=== PATIENT | female | born 1990 | race Caucasian/White ===

== ENCOUNTER 2018-12-22 13:27 | Outpatient (CLI) | payer BC ==
[~2018-12-22] VITALS: Ht 154.9 cm; Wt 66.8 kg
[2018-12-22] MEDS ORDERED: SINEQUAN 1010 MG/CAP PO (14:09)
[2018-12-22] MEDS ORDERED: SINGULAIR 110 MG/TAB PO (14:10)
[2018-12-22] MEDS ORDERED: CYCLOSPORINE100 MG PO (14:10)
[2018-12-22] MEDS ORDERED: ZANTAC 150MG T150 MG PO (14:11)
[2018-12-22] MEDS ORDERED: ZYRTEC 10MG10 MG PO (14:11)
[2018-12-22] MEDS ORDERED: XULANE1 TDM TD (14:12)
[2018-12-22] MEDS ORDERED: VENTOLIN0.09 MG IH (14:12)
[2018-12-22 14:13] VITALS: BP 118/70; PULSE 96; TEMP 98.3
[2018-12-22] MEDS ORDERED: EPIPEN 2-PAK1 MG/ML IM (14:13)
[2018-12-22] MEDS ORDERED: ANIMAL SHAPES +1 CTB (14:13)
[2018-12-22 16:05] VITALS: BP 109/67; PULSE 88; TEMP 98.7
== END 2018-12-22 17:00 | disposition home or self-care (01) ==
LOC: EUO 13:27
DX: L50.1 Idiopathic urticaria (principal); Z79.899 Other long term (current) drug therapy
CPT/HCPCS: J2357

== ENCOUNTER 2019-03-15 16:42 | Outpatient (CLI) | payer BC ==
[~2019-03-15] VITALS: Ht 154.9 cm; Wt 65.9 kg
[~2019-03-15 16:42] MED LIST: ANIMAL SHAPES +1 CTB; CYCLOSPORINE100 MG PO; EPIPEN 2-PAK1 MG/ML IM; SINEQUAN 1010 MG/CAP PO; SINGULAIR 110 MG/TAB PO; VENTOLIN0.09 MG IH; XULANE1 TDM TD; ZANTAC 150MG T150 MG PO; ZYRTEC 10MG10 MG PO
[2019-03-15 16:59] VITALS: BP 103/67; PULSE 74; TEMP 98
--- NOTE | 2019-03-15 17:54 | NUR ---
PT TOLERATED INJECTIONS WITH NO SIDE EFFECTS. PT WAS DISCHARGED HOME VIA AMBULATION OUT OF THE UNIT INDEPENDENTLY.
== END 2019-03-15 17:45 | disposition home or self-care (01) ==
LOC: EUO 16:42
DX: L50.1 Idiopathic urticaria (principal)
CPT/HCPCS: J2357

== ENCOUNTER 2019-04-12 16:42 | Outpatient (CLI) | payer BC ==
[2019-04-12 17:00] VITALS: BP 99/62; PULSE 80; TEMP 98.1
== END 2019-04-12 18:00 | disposition home or self-care (01) ==
LOC: EUO 16:42
DX: L50.1 Idiopathic urticaria (principal); Z79.51 Long term (current) use of inhaled steroids
CPT/HCPCS: J2357

== ENCOUNTER 2019-06-13 17:14 | Outpatient (CLI) | payer BC ==
[~2019-06-13] VITALS: Ht 154.9 cm; Wt 65.6 kg
[2019-06-13 17:23] VITALS: BP 99/65; PULSE 74; TEMP 98.9
== END 2019-06-13 18:00 ==
LOC: EUO 17:14
DX: L50.1 Idiopathic urticaria (principal); Z79.899 Other long term (current) drug therapy
CPT/HCPCS: J2357

== ENCOUNTER 2019-07-11 17:13 | Outpatient (CLI) | payer BC ==
[~2019-07-11] VITALS: Ht 154.9 cm; Wt 66.4 kg
[2019-07-11 17:35] VITALS: BP 110/70; PULSE 84; TEMP 98.3
== END 2019-07-11 18:09 | disposition home or self-care (01) ==
LOC: EUO 17:13
DX: L50.1 Idiopathic urticaria (principal); Z79.899 Other long term (current) drug therapy
CPT/HCPCS: J2357

== ENCOUNTER → 2019-08-14 | Outpatient (CLI) | payer BC | LOC: ZCOL.LAB 14:41 | DX: R07.0 Pain in throat (principal); R51 Headache; Z20.828 Contact with and (suspected) exposure to other viral communicable diseases ==

== ENCOUNTER 2019-08-17 17:11 | Outpatient (CLI) | payer BC ==
[~2019-08-17] VITALS: Ht 154.9 cm; Wt 62.5 kg
[2019-08-17 17:28] VITALS: BP 110/71; PULSE 77; TEMP 98.6
== END 2019-08-20 19:31 | disposition home or self-care (01) ==
LOC: EUO 17:11
DX: L50.1 Idiopathic urticaria (principal); Z79.899 Other long term (current) drug therapy
CPT/HCPCS: J2357

== ENCOUNTER 2019-09-17 17:00 | Outpatient (CLI) | payer BC ==
[~2019-09-17] VITALS: Ht 154.9 cm; Wt 62.1 kg
[2019-09-17] MEDS ORDERED: EFFEXOR100 MG PO (17:11)
[2019-09-17] MEDS ORDERED: GENGRAF100 MG PO (17:13)
[2019-09-17] MEDS ORDERED: PRILOSEC10 MG PO (17:14)
[2019-09-17] MEDS ORDERED: EFFEXOR XR75 MG/CAP PO (17:14)
[2019-09-17 17:27] VITALS: BP 113/67; PULSE 80; TEMP 98
== END 2019-09-17 17:27 | disposition home or self-care (01) ==
LOC: EUO 17:00
DX: L50.1 Idiopathic urticaria (principal)
CPT/HCPCS: J2357

== ENCOUNTER 2019-10-09 17:03 | Outpatient (CLI) | payer BC ==
[~2019-10-09] VITALS: Ht 154.9 cm; Wt 62.6 kg
[~2019-10-09 17:03] MED LIST changes: +EFFEXOR XR75 MG/CAP PO; +EFFEXOR100 MG PO; +GENGRAF100 MG PO; +PRILOSEC10 MG PO
[2019-10-09 17:41] VITALS: BP 109/66; PULSE 766; TEMP 99
== END 2019-10-09 19:16 | disposition home or self-care (01) ==
LOC: EUO 17:03
DX: L50.1 Idiopathic urticaria (principal)
CPT/HCPCS: J2357

== ENCOUNTER 2019-11-06 16:51 | Outpatient (CLI) | payer BC ==
[~2019-11-06] VITALS: Ht 154.9 cm; Wt 63.3 kg
[2019-11-06 17:11] VITALS: BP 119/81; PULSE 90; TEMP 98.9
== END 2019-11-06 17:45 | disposition home or self-care (01) ==
LOC: EUO 16:51
DX: L50.1 Idiopathic urticaria (principal); Z79.899 Other long term (current) drug therapy
CPT/HCPCS: J2357

== ENCOUNTER 2019-12-04 17:03 | Outpatient (CLI) | payer BC ==
[~2019-12-04] VITALS: Ht 154.9 cm; Wt 63.8 kg
[2019-12-04 17:33] VITALS: BP 111/80; PULSE 75; TEMP 98.3
[2019-12-04] MEDS ORDERED: PROGRAF 1MG1 MG PO (17:33)
== END 2019-12-04 17:39 | disposition home or self-care (01) ==
LOC: EUO 17:03
DX: L50.1 Idiopathic urticaria (principal); Z79.899 Other long term (current) drug therapy
CPT/HCPCS: J2357

== ENCOUNTER 2020-01-01 16:25 | Outpatient (CLI) | payer BC ==
[~2020-01-01] VITALS: Ht 154.9 cm; Wt 65.5 kg
[~2020-01-01 16:25] MED LIST changes: +PROGRAF 1MG1 MG PO
[2020-01-01 17:00] VITALS: BP 112/76; PULSE 75; TEMP 98.2
== END 2020-01-01 17:12 | disposition home or self-care (01) ==
LOC: EUO 16:25
DX: L50.1 Idiopathic urticaria (principal); Z79.899 Other long term (current) drug therapy
CPT/HCPCS: J2357